=== PATIENT | male | born 1940 | race Caucasian/White ===

== ENCOUNTER 2017-07-05 13:46 | Emergency (ER) | payer MEDICARE, MEDICAID ==
[2017-07-05] MEDS ORDERED: ACETAMINOPHEN 500 MG 500 MG TAB PO ONE (14:16)
[2017-07-05] MEDS ORDERED: ACETAMINOPHEN 500 MG 500 MG TAB ONE (14:18)
[2017-07-05] MEDS ORDERED: LORAZEPAM 2 MG/ML SOL ONE (14:43)
[2017-07-05] MEDS ORDERED: KETOROLAC TROMETHAMINE 30 MG/ML SOL IM ONE (14:44)
[2017-07-05] MEDS ORDERED: KETOROLAC TROMETHAMINE 30 MG/ML SOL ONE (14:54)
[2017-07-05 15:17] VITALS: TEMP 97.2
[2017-07-05 15:59] VITALS: BP 155/89; PULSE 72; RESP 18; O2SAT 94
== END 2017-07-05 15:50 | disposition home or self-care (01) | DRG 556 ==
LOC: ED 13:46
DX: M25.512 Pain in left shoulder (principal); Z86.59 Personal history of other mental and behavioral disorders; W06.XXXA Fall from bed, initial encounter
CPT/HCPCS: 73030; 96372; 99283; J1885; J2060

== ENCOUNTER 2018-02-10 10:13 | Day surgery (SDC) | payer MEDICARE, MEDICAID ==
[2018-02-10] MEDS ORDERED: PROPOFOL 500 MG/50 ML EMU IV ONE (10:50)
[2018-02-10] MEDS ORDERED: LIDOCAINE HCL 1% MPF 30 SOL ONE (10:50)
[2018-02-10 12:33] VITALS: PULSE 59
[2018-02-10 13:26] VITALS: BP 127/77; RESP 20; TEMP 97; O2SAT 93
== END 2018-02-10 13:15 | disposition home or self-care (01) | DRG 951 ==
LOC: SURG 10:13
PROVIDERS: ATTEND Surgery
DX: Z12.11 Encounter for screening for malignant neoplasm of colon (principal); K57.32 Diverticulitis of large intestine without perforation or abscess without bleeding; Z86.010 Personal history of colon polyps; D12.2 Benign neoplasm of ascending colon; D12.0 Benign neoplasm of cecum
CPT/HCPCS: J2001; J2704

== ENCOUNTER 2018-10-04 17:05 | Observation (INO) | payer MEDICARE, MEDICAID ==
[2018-10-04] MEDS: SODIUM CHLORIDE 0.9% FLUSH 10 ML SOL IV PRN ×2 (17:43→22:15)
[2018-10-04] MEDS ORDERED: SODIUM CHLORIDE 0.9% 1000ML 1,000 ML IV ONE (17:44)
[2018-10-04 17:55] LABS: HEMATOCRIT 38 % (39-53); HEMOGLOBIN 12.6 gm/dl (13.5-17.7); MEAN CORPUSCULAR HEMOGLOBIN 26.9 pg (27.0-32.0); MEAN CORPUSCULAR HGB CONC 32.9 gm/dl (32.0-36.0); MEAN CORPUSCULAR VOLUME 82 fL (80-100)
[2018-10-04 18:09] LABS: ALBUMIN 1.7 gm/dl (3.4-5.0); CALCIUM 8.7 mg/dl (8.5-10.1); CREATININE 0.89 mg/dl (0.80-1.30); TOTAL PROTEIN 5.8 gm/dl (6.4-8.2)
[2018-10-04 18:13] LABS: POTASSIUM 2.4 mMol/L (3.5-5.1)
[2018-10-04 18:14] LABS: BILIRUBIN,TOTAL 22.8 mg/dl (0.2-1.0); NEUTROPHILS % (MANUAL) 82 % (37-80)
[2018-10-04 18:15] LABS: ANISOCYTOSIS SLIGHT AMT; BAND NEUTROPHILS % (MANUAL) 5 %; BASOPHILS % (MANUAL) 0 % (0-3); EOSINOPHILS % (MANUAL) 0 % (0-9); LYMPHOCYTES % (MANUAL) 9 % (10-50); MONOCYTES % (MANUAL) 4 % (0-12); POIKILOCYTOSIS SLIGHT AMT; TARGET CELLS PRESENT
[2018-10-04] MEDS ORDERED: POTASSIUM CHLORIDE 10 MEQ TER PO ONE (18:47)
[2018-10-04] MEDS ORDERED: POTASSIUM CHLORIDE 10 MEQ TER ONE (18:48)
[2018-10-04 20:54] LABS: APPEARANCE,URINE Slightly Cloudy; BILIRUBIN,URINE 3+ (NEGATIVE); COLOR,URINE Amber; GLUCOSE, URINE (UA) TRACE (NEGATIVE); KETONES,URINE TRACE (NEGATIVE); LEUKOCYTE ESTERASE ,URINE 1+ (NEGATIVE); NITRATE,URINE NEGATIVE (NEGATIVE); OCCULT BLOOD,URINE TRACE INTACT (NEG-TRACE); PH,URINE 5.5; UROBILINOGEN,URINE 0.2 (0.2-1.0 EU)
[2018-10-04 21:02] LABS: ICTOTEST,URINE POSITIVE (NEGATIVE)
[2018-10-04 21:11] LABS: BACTERIA 3+ (< 1+); CRYSTALS NEGATIVE (0-3 AVE/HPF); EPITHELIAL CELLS 0-1 (SQUAMOUS); RBC,URINE 0-1 (0-3AV/HPF)
[2018-10-04] MEDS ORDERED: LOVASTATIN 20 MG TABLET ONE (23:43)
[2018-10-04] MEDS ORDERED: POTASSIUM CHLORIDE 10 MEQ CAPSULE PO SCH (23:45)
[2018-10-05] MEDS: POTASSIUM CHLORIDE 10 MEQ TER PO SCH ×3 (00:04→05:23)
[2018-10-05] MEDS ORDERED: SODIUM CHLORIDE 0.9% 50 ML 50 ML IV ONE (04:36)
[2018-10-05] MEDS ORDERED: CEFTRIAXONE 1 GM PDS ONE (04:36)
[2018-10-05] MEDS: SODIUM CHLORIDE 0.9% FLUSH 10 ML SOL IV PRN ×2 (04:50→20:35)
[2018-10-05] MEDS ORDERED: CEFTRIAXONE 1 GM PDS 1 GM in SODIUM CHLORIDE 0.9% 50 ML 50 ML IV SCH (05:00)
[2018-10-05] MEDS ORDERED: POTASSIUM CHLORIDE 2 MEQ/ML 60 MEQ, LIDOCAINE HCL 1% MDV 2 ML in SODIUM CHLORIDE 0.9% 1... IV ONE (08:01)
[2018-10-05] MEDS ORDERED: DONEPEZIL 10 MG TAB PO SCH (09:00)
[2018-10-05] MEDS ORDERED: POTASSIUM CHLORIDE 2 MEQ/ML SOL IV ONE (09:20)
[2018-10-05] MEDS ORDERED: LIDOCAINE HCL 1% MPF 30 SOL ONE (09:26)
[2018-10-05] MEDS: CEFPROZIL 250 MG/5 ML SUSP.RECON PO SCH ×2 (09:41→19:42)
[2018-10-05] MEDS: DONEPEZIL 5 MG 5 MG TAB PO SCH (09:41)
[2018-10-05] MEDS ORDERED: LOVASTATIN 10 MG TAB PO SCH (20:00)
[2018-10-05] MEDS ORDERED: TRAZODONE HYDROCHLORIDE 50 MG TAB PO SCH (21:00)
[2018-10-06 07:20] LABS: CARBON DIOXIDE 27.4 mEq/L (21-32); CREATININE 0.58 mg/dl (0.80-1.30); POTASSIUM 3.2 mMol/L (3.5-5.1)
[2018-10-06] MEDS ORDERED: POTASSIUM CHLORIDE 2 MEQ/ML 40 MEQ, LIDOCAINE HCL 1% MDV 2 ML in SODIUM CHLORIDE 0.9% 5... IV ONE (07:53)
[2018-10-06 08:22] VITALS: BP 104/66; PULSE 63; RESP 14; TEMP 97.4; O2SAT 96
[2018-10-06] MEDS ORDERED: POTASSIUM CHLORIDE 2 MEQ/ML SOL IV ONE (08:33)
[2018-10-06] MEDS: CEFPROZIL 250 MG/5 ML SUSP.RECON PO SCH (08:35)
[2018-10-06] MEDS: DONEPEZIL 5 MG 5 MG TAB PO SCH (08:35)
[2018-10-06] MEDS ORDERED: LIDOCAINE HCL 1% MPF 30 SOL ONE (08:36)
[2018-10-06] MEDS ORDERED: LIDOCAINE HCL 2% (100 MG) CARP ONE (08:37)
== END 2018-10-06 09:00 | disposition short-term general hospital (02) | DRG 641 ==
LOC: ED 17:05 → ACUTE CARE 20:07
PROVIDERS: ADMIT Emergency Medicine; ATTEND Emergency Medicine
DX: E87.6 Hypokalemia (principal); R17 Unspecified jaundice; R79.89 Other specified abnormal findings of blood chemistry; E86.0 Dehydration; R53.1 Weakness; F02.80 Dementia in other diseases classified elsewhere, unspecified severity, without behavioral disturbance, psychotic disturbance, mood disturbance, and anxiety; G30.1 Alzheimer's disease with late onset
CPT/HCPCS: 36415; 71045; 80048; 80053; 81001; 84132; 85007; 85027; 87077; 87088; 87186; 93012; 99285; J0696; J2001; J3480; A9270-GY